=== PATIENT | male | born 1975 | race Two or more races ===

== ENCOUNTER 2020-11-16 17:00 | Inpatient (IN) | payer MEDICAID ==
[~2020-11-16] VITALS: Ht 167.6 cm; Wt 52.2 kg
[2020-11-16] MEDS ORDERED: SODIUM CHLORIDE 0.9% 1000ML BAG (SEPSIS BOLUS) IV ONE (18:00)
[2020-11-16 18:44] LABS: EOSINOPHILS % 0.8 % (0.0-5.0); MEAN CORPUSCULAR HEMOGLOBIN 28.5 pg (28.0-32.0); MEAN CORPUSCULAR VOLUME 83.3 fL (80.0-94.0); MEAN PLATELET VOLUME 8.8 fl (7.4-10.4); MONOCYTES % 7.2 % (2.0-8.0); PLATELET 216 x1000/uL (130-400); RED BLOOD CELL COUNT 4.92 mill/uL (4.7-6.1); RED CELL DISTRIBUTION WIDTH 13.6 % (11.6-14.6)
[2020-11-16 18:49] LABS: CHLORIDE 105 mEq/L (98-107)
[2020-11-16 18:52] LABS: ETHANOL BLOOD < 10 mg/dL
[2020-11-16 19:48] LABS: CLARITY URINE CLOUDY (CLEAR); COLOR URINE DARK YELLOW (YELLOW); KETONES URINE TRACE (NEGATIVE); LEUKOCYTE ESTERASE URINE 2+ (NEGATIVE); NITRITE URINE POSITIVE (NEGATIVE); OCCULT BLOOD URINE TRACE (NEGATIVE); PH URINE 5.5 (4.5-8.0); PROTEIN URINE TRACE (NEGATIVE); SPECIFIC GRAVITY URINE 1.027 (1.005-1.030); UROBILINOGEN URINE 0.2 E.U./dL (0.2-1.0)
[2020-11-16 20:04] LABS: *AMPHETAMINES SCREEN URINE NEGATIVE (NEGATIVE); *BARBITURATES SCREEN URINE NEGATIVE (NEGATIVE); *BENZODIAZEPINES SCREEN URINE NEGATIVE (NEGATIVE); *COCAINE SCREEN URINE NEGATIVE (NEGATIVE); CANNABINOID URINE SCREEN NEGATIVE (NEGATIVE); METHADONE URINE SCREEN NEGATIVE (NEGATIVE); OPIATES URINE SCREEN NEGATIVE (NEGATIVE)
[2020-11-16 20:05] LABS: PHENCYCLIDINE URINE SCREEN NEGATIVE (NEGATIVE)
[2020-11-16] MEDS ORDERED: CEFTRIAXONE 1 G PREMIX 50 ML IV ONE (20:30)
[2020-11-16] MEDS ORDERED: SODIUM CHLORIDE 0.9% 1,000 ML IV ONE (21:45)
[2020-11-17] VITALS (34 sets, daily range): BP systolic 90–144; BP diastolic 16–76
[2020-11-17] MEDS: NOREPINEPHRINE 8MG/250ML PMX 250 ML IV PRN ×2 (01:40→03:30)
[2020-11-17] MEDS ORDERED: HYDROCODONE/ACETAMINOPHEN 5/325MG TABLET PO PRN (05:15)
[2020-11-17] MEDS ORDERED: ACETAMINOPHEN 325MG TABLET PO PRN (05:15)
[2020-11-17] MEDS: SODIUM CHLORIDE 0.9% 1,000 ML IV SCH ×2 (06:12→14:17)
[2020-11-17 08:33] LABS: BASOPHILS % 0.1 % (0.0-2.0); EOSINOPHILS % 0.6 % (0.0-5.0); HEMATOCRIT. 37.7 % (42.0-52.0); HEMOGLOBIN. 12.6 g/dL (14.0-18.0); LYMPHOCYTES % 20.9 % (20.0-50.0); MEAN CORPUSCULAR HEMOGLOBIN 28.6 pg (28.0-32.0); MEAN CORPUSCULAR VOLUME 85.6 fL (80.0-94.0); MEAN PLATELET VOLUME 8.9 fl (7.4-10.4); MONOCYTES % 7.9 % (2.0-8.0); NEUTROPHILS % 70.5 % (40.0-76.0); PLATELET 192 x1000/uL (130-400); RED BLOOD CELL COUNT 4.41 mill/uL (4.7-6.1); RED CELL DISTRIBUTION WIDTH 13.7 % (11.6-14.6)
[2020-11-17 08:40] LABS: CHLORIDE 111 mEq/L (98-107)
[2020-11-17 08:47] LABS: PHOSPHORUS 2.6 mg/dL (2.5-4.9)
[2020-11-17] MEDS: FAMOTIDINE 20MG TABLET PO SCH ×2 (10:10→21:04)
[2020-11-17] MEDS ORDERED: INFLUENZA VACCINE 05/PF 0.5 ML VIAL IM ONE (12:00)
[2020-11-17] MEDS ORDERED: MAGNESIUM 2 G PREMIX 50 ML IV ONE (12:30)
[2020-11-17] MEDS: CEFTRIAXONE 1,000 MG in DEXTROSE 5% WATER 50 ML IV SCH (22:39)
[2020-11-18] VITALS: BP 104/55
[2020-11-18 04:00] VITALS: BP 101/52
[2020-11-18] MEDS: SODIUM CHLORIDE 0.9% 1,000 ML IV SCH ×2 (06:33→11:56)
[2020-11-18 08:00] VITALS: BP 94/51
[2020-11-18] MEDS: FAMOTIDINE 20MG TABLET PO SCH ×2 (09:19→21:16)
[2020-11-18 12:00] VITALS: BP 94/53
[2020-11-18 16:00] VITALS: BP 98/51
[2020-11-18 20:00] VITALS: BP 94/46
[2020-11-18] MEDS: CEFTRIAXONE 1,000 MG in DEXTROSE 5% WATER 50 ML IV SCH (21:16)
[2020-11-19] VITALS: BP 90/47
[2020-11-19 04:00] VITALS: BP 100/51
[2020-11-19 08:00] VITALS: BP 94/50
[2020-11-19] MEDS: FAMOTIDINE 20MG TABLET PO SCH ×2 (08:49→21:45)
[2020-11-19] MEDS: SODIUM CHLORIDE 0.9% 1,000 ML IV SCH ×2 (08:49→16:57)
[2020-11-19 12:00] VITALS: BP 125/91
[2020-11-19 16:00] VITALS: BP 108/48
[2020-11-19 20:00] VITALS: BP 94/48
[2020-11-19] MEDS: CEFTRIAXONE 1,000 MG in DEXTROSE 5% WATER 50 ML IV SCH (21:45)
[2020-11-20] VITALS: BP 104/47
[2020-11-20 04:00] VITALS: BP 90/53
[2020-11-20 08:00] VITALS: BP 173/72
[2020-11-20] MEDS ORDERED: CLONIDINE 0.1MG TABLET PO PRN (08:45)
[2020-11-20] MEDS: FAMOTIDINE 20MG TABLET PO SCH ×2 (09:01→21:51)
[2020-11-20] MEDS: AMLODIPINE 10MG TABLET PO SCH (09:01)
[2020-11-20 12:00] VITALS: BP 93/40
[2020-11-20 16:00] VITALS: BP 114/39
[2020-11-20] MEDS ORDERED: MAGNESIUM 2 G PREMIX 50 ML IV NR (17:00)
[2020-11-20 20:00] VITALS: BP 91/58
[2020-11-20] MEDS: CEFTRIAXONE 1,000 MG in DEXTROSE 5% WATER 50 ML IV SCH (21:52)
[2020-11-21] VITALS: BP 90/52
[2020-11-21 04:00] VITALS: BP 92/50
[2020-11-21 08:00] VITALS: BP 84/47
[2020-11-21] MEDS: AMLODIPINE 10MG TABLET PO SCH (09:00)
[2020-11-21] MEDS: FAMOTIDINE 20MG TABLET PO SCH ×2 (09:49→20:30)
[2020-11-21 12:00] VITALS: BP 91/50
[2020-11-21] MEDS: SODIUM CHLORIDE 0.9% 1,000 ML IV SCH (14:57)
[2020-11-21 16:00] VITALS: BP 93/43
[2020-11-21] MEDS: MIDODRINE HCL 2.5MG TABLET PO SCH (18:08)
[2020-11-21 20:00] VITALS: BP 92/55
[2020-11-22] VITALS: BP 90/52
[2020-11-22] MEDS: SODIUM CHLORIDE 0.9% 1,000 ML IV SCH ×2 (03:05→16:25)
[2020-11-22 04:00] VITALS: BP 92/51
[2020-11-22 08:00] VITALS: BP 87/36
[2020-11-22] MEDS: MIDODRINE HCL 2.5MG TABLET PO SCH ×3 (09:05→17:11)
[2020-11-22] MEDS: FAMOTIDINE 20MG TABLET PO SCH ×2 (09:05→21:10)
[2020-11-22 12:00] VITALS: BP 86/50
[2020-11-22 16:00] VITALS: BP_SYST 115; BP_SYST 92; BP_DIAS 43; BP_DIAS 75
[2020-11-22] MEDS: MIDODRINE HCL 5MG TABLET PO SCH (18:30)
[2020-11-22 20:00] VITALS: BP 98/48
[2020-11-22] MEDS ORDERED: MAGNESIUM 2 G PREMIX 50 ML IV NR (20:00)
[2020-11-23] VITALS: BP 75/33
[2020-11-23] MEDS ORDERED: SODIUM CHLORIDE 0.9% 1,000 ML IV ONE (02:15)
[2020-11-23 03:01] VITALS: BP 101/51
[2020-11-23 04:00] VITALS: BP 93/48
[2020-11-23] MEDS: SODIUM CHLORIDE 0.9% 1,000 ML IV SCH ×2 (05:18→15:05)
[2020-11-23 05:58] LABS: CHLORIDE 115 mEq/L (98-107)
[2020-11-23 06:18] LABS: BASOPHILS % 0.2 % (0.0-2.0); EOSINOPHILS % 2.5 % (0.0-5.0); HEMATOCRIT. 34.7 % (42.0-52.0); HEMOGLOBIN. 11.8 g/dL (14.0-18.0); LYMPHOCYTES % 48.7 % (20.0-50.0); MEAN CORPUSCULAR HEMOGLOBIN 28.9 pg (28.0-32.0); MEAN CORPUSCULAR VOLUME 85.1 fL (80.0-94.0); MEAN PLATELET VOLUME 9.1 fl (7.4-10.4); MONOCYTES % 11.9 % (2.0-8.0); NEUTROPHILS % 36.7 % (40.0-76.0); PLATELET 186 x1000/uL (130-400); RED BLOOD CELL COUNT 4.08 mill/uL (4.7-6.1); RED CELL DISTRIBUTION WIDTH 13.4 % (11.6-14.6)
[2020-11-23 08:00] VITALS: BP 91/42
[2020-11-23] MEDS: FAMOTIDINE 20MG TABLET PO SCH (08:37)
[2020-11-23] MEDS: MIDODRINE HCL 5MG TABLET PO SCH ×3 (08:37→17:43)
[2020-11-23 12:00] VITALS: BP 100/43
[2020-11-23] MEDS ORDERED: ENOXAPARIN 40MG/0.4ML SYR SUBCUT SCH (13:00)
[2020-11-23 16:00] VITALS: BP 90/48
== END 2020-11-23 19:05 | DRG 463 ==
LOC: ER 17:00 → EDBEDREQSVC 11-17 00:52 → EDBEDREQTM 11-17 00:52 → ENRESERV 11-17 02:18 → MICUSO 11-17 04:00 → 5WST 11-17 15:26
PROVIDERS: ADMIT Internal Medicine; ATTEND Internal Medicine
DX: N39.0 Urinary tract infection, site not specified (principal); L89.153 Pressure ulcer of sacral region, stage 3; E46 Unspecified protein-calorie malnutrition; E83.42 Hypomagnesemia; I10 Essential (primary) hypertension; Z20.822 Contact with and (suspected) exposure to COVID-19; B96.1 Klebsiella pneumoniae [K. pneumoniae] as the cause of diseases classified elsewhere; Z68.1 Body mass index [BMI] 19.9 or less, adult; Z79.899 Other long term (current) drug therapy
CPT/HCPCS: 36415; 71045; 80048; 80053; 80305; 80320; 81003; 82040; 83605; 83735; 83880; 84100; 84134; 84145; 84484; 85025; 87077; 87186; 87426; 90686; 93005; 97116; 97162; 99285; A6261; J0696; J1650; J3475; J3490; J7030; J7060; G0480